=== PATIENT | female | born 1985 | race Caucasian/White ===

== ENCOUNTER 2020-10-03 07:30 | Inpatient (IN) | payer OTHER ==
[2020-10-02 16:44] LABS: Absolute Lymphocytes (CBC) 1.6 K/uL (0.7-4.9); Basophils % 0.2 % (0-1.3); Hematocrit 35.7 % (36.0-45.0); Lymphocytes % 15.8 % (15.3-44.8); MPV 8.8 fL (7.6-11.3)
[2020-10-02 16:46] LABS: Protime INR 0.92
[2020-10-02 17:56] LABS: Urine Appearance CLEAR; Urine Bilirubin NEGATIVE (NEG); Urine Blood NEGATIVE (NEG); Urine Color YELLOW; Urine Glucose TRACE (NEG); Urine Protein NEGATIVE (NEG); Urine Urobilinogen 0.2 mg/dL (0.2-1.0)
[2020-10-02 18:02] LABS: Urine Microscopic Reflex NO UMIC
[2020-10-03 03:07] LABS: RPR (Rapid Plasma Reagin) NON-REACT (NON-REACT)
[~2020-10-03 07:30] MED LIST: CEFAZOLIN/SWI 1gm 1 GM/10 ML SYR IVP SCH
[2020-10-04] MEDS ORDERED: Ringers Lactate 1,000 ML IV PRN (03:56)
[2020-10-04] MEDS ORDERED: Ringers Lactate 1,000 ML IV SCH (04:00)
[2020-10-04] MEDS ORDERED: NA CIT/CITRIC AC 30 ML ORAL UDC PO ONE (04:03)
[2020-10-04] MEDS ORDERED: FAMOTIDINE 20 MG/2 ML VIAL IV ONE (04:05)
[2020-10-04 04:22] VITALS: BMI 28.8
--- OUTSIDE RECORDS SUMMARY | 2020-10-04 04:34 | XMS REPORT | Continuity of Care Document ---
:1985 Author Organization [facility] t Address [address] [place] [address] Care Team Providers Name Role Phone Unavailable Unavailable Unavailable Problems This patient has no known problems. Allergies, Adverse Reactions, Alerts This patient has no known allergies or adverse reactions. Medications This patient has no known medications. Procedures This patient has no known procedures. Results This patient has no known results.
[2020-10-04] MEDS ORDERED: METOCLOPRAMIDE 10 MG/2mL INJ IV SCH (05:00)
[2020-10-04] MEDS ORDERED: CEFAZOLIN/SWI 1gm 1 GM/10 ML SYR ONE (06:41)
[2020-10-04] MEDS ORDERED: MORPHINE SULFATE/PF 1 MG/ML (10 ML AMP) ONE (06:58)
[2020-10-04] MEDS ORDERED: BUPIVACAINE 0.75% (PF) 2 ML SP ONE (06:59)
[2020-10-04] MEDS ORDERED: METHYLERGONOVINE 0.2MG/ML AMP IM ONE (07:00)
[2020-10-04] MEDS ORDERED: CARBOPROST TROME 250 MCG/ML IM ONE (07:00)
[2020-10-04] MEDS ORDERED: LIDOCAINE 1% MPF 5 ML VIAL ONE ×2 (07:05→07:16)
[2020-10-04] MEDS ORDERED: OXYTOCIN 10 UNIT/ML ML IV ONE (07:14)
[2020-10-04] MEDS ORDERED: EPHEDRINE SULF 50 MG/ML VIAL ONE (07:30)
[2020-10-04] MEDS ORDERED: NS 0.9% VIAL 10 ML ONE (07:30)
[2020-10-04] MEDS ORDERED: ONDANSETRON 4 MG/2 ML VIAL ONE (07:46)
[2020-10-04] MEDS ORDERED: BISACODYL 10 MG RECTAL SUPP RC PRN (08:04)
[2020-10-04] MEDS ORDERED: ONDANSETRON 4 MG/2 ML VIAL IV PRN (08:04)
[2020-10-04] MEDS ORDERED: ACETAMINOPHEN 500 MG TAB PO PRN ×2 (08:04)
[2020-10-04] MEDS ORDERED: Oxycodone HCl/Acetaminophen 1 TAB TAB PO PRN (08:04)
[2020-10-04] MEDS ORDERED: ONDANSETRON 4 MG (ODT) TAB PO PRN (08:04)
[2020-10-04] MEDS ORDERED: IBUPROFEN 600 MG TAB PO PRN (08:04)
--- NOTE | 2020-10-04 08:42 | OP ---
Surgeon: Angus Stone MD Database Engineer: Database Engineer surgeon: Dr. Braulio Burks MD. Anesthesiologist: Dr. Arroyo. Indication: A 35-year-old 7, para 1, AB 5, 39 weeks for repeat section. Infection, blood loss, anesthetic complications, injury to bladder, bowel, ureter, postoperative complications, clots in legs, pneumonia discussed. The patient knows fully well does not constitute all the possib le problems that could occur during or following surgery. Anesthesia: Spinal block. Procedure In Detail: After prepping and draping, time-out was performed and incision was created acr oss the previous incision site. The incision was carried to the fascia. The fascia was incised. Th e incision was carried transversely bilaterally. Anterior and posterior fascial plane were developed with both blunt and sharp dissection. Underlying rectus muscle was . Peritoneal defect wa s encountered and entered. Noted to be scarring on the left lower side of the uterus, fulguration wa s used to get better visualization. Low transverse uterine incision was created. A 6 pounds 4 ounce s female was delivered without difficulties. Apgars 9 and 9. Cord blood specimen obtained. Cervica l os was dilated. Uterus was inspected after placenta had been removed, noted to be intact. Estimat ed blood loss 700 cc during the entire procedure. Uterus was closed with a running lock stitch of 1 chromic followed by a small imbricating stitch of 1 chromic on the right side of the incision. Gutte rs were cleared of clot and blood. Uterus was replaced in the peritoneal cavity. Inspection of sutu re line showed no further bleeding. Rectus muscles were reapproximated using 3 interrupted sutures o f 0 Vicryl. 1 Vicryl was used to close the fascia running from either angle to the midline. Subcuta neous tissue was closed with 2-0 plain. Zack were used for the skin. The patient had been given 2 g of Ancef prior to the procedure. Tolerated all procedures well. Transferred back to her room in good condition. Final Diagnoses: Term intrauterine , repeat section, spinal block anesthesia. SHELLIE/ROOPA Voice ID: [id number] Report ID: [id number]
[2020-10-04] MEDS ORDERED: D5LR 1,000 ML with OXYTOCIN 20 UNIT IV SCH ×2 (09:00)
[2020-10-04] MEDS ORDERED: OXYTOCIN/LR 20 UNIT/1,000 ML BAG IV SCH (09:00)
[2020-10-04] MEDS: KETOROLAC 30 MG/ML INJ IM PRN ×2 (09:50→17:05)
[2020-10-04] MEDS ORDERED: Ringers Lactate 1,000 ML IV ONE (10:01)
[2020-10-04] MEDS: Oxycodone HCl/Acetaminophen 1 TAB TAB PO PRN ×2 (12:56→19:42)
[2020-10-04] MEDS ORDERED: CEFAZOLIN/SWI 1gm 1 GM/10 ML SYR IV SCH (15:00)
[2020-10-04] MEDS ORDERED: CEFAZOLIN/SWI 2gm 2 GM/20 ML SYR ONE (15:49)
[2020-10-04] MEDS ORDERED: CEFAZOLIN/SWI 2gm 2 GM/20 ML SYR IVP SCH (16:30)
[2020-10-05] MEDS: DIPHENHYDRAMINE 25 MG TAB/CAP PO PRN ×3 (00:40→17:00)
[2020-10-05] MEDS: KETOROLAC 30 MG/ML INJ IM PRN (00:41)
[2020-10-05] MEDS: Oxycodone HCl/Acetaminophen 1 TAB TAB PO PRN ×4 (04:34→20:00)
--- NOTE | 2020-10-05 07:46 | DS ---
Hospital Course: Gris Doss is a 35-year-old female, 7, para 1, 39 weeks for repeat libia an section. Underwent repeat section low transverse cervical, delivery of a 6 pounds 4 ounc es female, Apgars 9 and 9. Spinal block anesthesia, 700 cc or less blood loss. Mild scarring in the right lower portion of the uterus. ; afebrile, ambulating and voiding. Lochia is normal. H and H with minimal change. No post spinal block problems. She has had a Tdap and flu shots. Sh e will be dismissed tomorrow morning to report back to my office on Wednesday of next week to report any temperature elevation of 100 degrees or greater, severe pain, heavy bleeding, or any other type o f abnormalities. Dismissed with tramadol for analgesia. She knows this goes through the breast milk . Final Diagnoses: Term intrauterine , repeat section, spinal block anesthesia. SHELLIE/ROOPA Voice ID: [id number] Report ID: [id number]
[2020-10-05] MEDS ORDERED: MAGNESIUM HYDROXIDE 8% 30 ML PO PRN (08:04)
[2020-10-06] MEDS: Oxycodone HCl/Acetaminophen 1 TAB TAB PO PRN ×3 (00:05→08:15)
[2020-10-06 08:30] VITALS: BP 113/68; TEMP 98.5
--- NOTE | 2020-10-08 09:49 | PREOPHP ---
Date of Admission: 10/04/2020 History Of Present Illness: This is a 35-year-old 7, para 1, 5 miscarriages at 39 weeks, germaine orrow for repeat section. Infection, blood loss, anesthetic complications, injury to bladde r, bowel, ureter, postoperative complications, clots in legs, pneumonia discussed. The patient knows fully well this does not constitute all the possible problems that could occur during or following s urgery, knows with each surgery, risks and complications is higher. Family History: Maternal grandmother with kidney stones. Mother with gallbladder. Mother with cerv ical cancer. The patient has had a previous . Allergies: SHE HAS NO ALLERGIES. Social History: Does not smoke. Physical Examination: HEENT: Clear. Pupils equal, round, reactive to light and accommodation. Conjunctivae well perfused . No oral, lingual, or buccal lesions. Chest and Lungs: Clear. Heart: Without murmurs, thrills, heaves, or rubs. Breasts: Not examined on this visit. Abdomen: Term. Baby is probably in the 6.5 to 7 pounds range. Baby is vertex, is still high. Extremities: Clear without edema, cyanosis, or clubbing. Plan: We will proceed with section at approximately 38 weeks and 6 days tomorrow. SHELLIE/ROOPA Voice ID: [id number]
[2020-10-08 19:17] LABS: HBsAG Nonreactive (Nonreactive)
== END 2020-10-06 10:10 | disposition home or self-care (01) | DRG 788 ==
LOC: 2ND-WC 10-04 04:32 → MERGE 10-04 04:32
PROVIDERS: ADMIT Specialist; ATTEND Specialist
PROC: 10907ZC Drainage of Amniotic Fluid, Therapeutic from Products of Conception, Via Natural or Artificial Opening (ICD-10-PCS; 2020-10-04)
PROC: 10D00Z1 Extraction of Products of Conception, Low, Open Approach (ICD-10-PCS; principal; 2020-10-04 07:00)
DX: O34.211 Maternal care for low transverse scar from previous cesarean delivery (principal); Z3A.39 39 weeks gestation of pregnancy; Z37.0 Single live birth; Z20.828 Contact with and (suspected) exposure to other viral communicable diseases
CPT/HCPCS: 36415; 81003; 85014; 85025; 85610; 85730; 86592; 86850; 86900; 86901; 87340; 88307; J0690; J2210; J2405; J2590; J2765; J7120; J7121; U0003

== ENCOUNTER 2021-10-21 10:36 | Emergency (ER) | payer OTHER ==
--- OUTSIDE RECORDS SUMMARY | 2021-10-21 10:41 | XMS REPORT | Continuity of Care Document ---
:1985 Author Organization [facility] t Address [address] [place] [address] Care Team Providers Name Role Phone Unavailable Unavailable Unavailable Problems This patient has no known problems. Allergies, Adverse Reactions, Alerts This patient has no known allergies or adverse reactions. Medications This patient has no known medications. Procedures This patient has no known procedures. Results This patient has no known results.
[2021-10-21 11:11] LABS: Urine Blood Negative (Negative); Urine Glucose Negative (Negative); Urine Protein Negative (Negative); Urine Specific Gravity <=1.005 (1.005-1.030)
[2021-10-21 11:39] LABS: Urine Bacteria NONE SEEN /HPF (<20); Urine RBC <5 /HPF (NONE SEEN)
[2021-10-21 11:52] LABS: Absolute Lymphocytes (CBC) 1.5 K/uL (0.7-4.9); Basophils % 0.2 % (0-1.3); Hematocrit 32.5 % (36.0-45.0); Lymphocytes % 14.2 % (15.3-44.8); MPV 7.1 fL (7.6-11.3); RBC Red Blood Cell Count 3.56 M/uL (3.86-4.86)
[2021-10-21 12:50] LABS: ALT/SGPT 21 U/L (12-78); AST/SGOT 11 U/L (15-37); Albumin 2.7 g/dL (3.4-5.0); Alkaline Phosphatase 86 U/L (45-117); BUN Blood Urea Nitrogen 7 mg/dL (7-18); Bicarbonate 22 mmol/L (21-32); Bilirubin Direct < 0.1 mg/dL (0-0.2); Bilirubin Total 0.3 mg/dL (0.2-1.0); Glucose Level 94 mg/dL (74-106); Lipase 68 U/L (73-393); Potassium 3.9 mmol/L (3.5-5.1); Protein, Total 7.5 g/dL (6.4-8.2); Sodium Level 140 mmol/L (136-145)
[2021-10-21 12:58] LABS: SARS-COV-2 RT PCR NEGATIVE (NEGATIVE)
--- NOTE | 2021-10-21 14:22 | RAD REPORT ---
EXAM DESCRIPTION: Juliette Single View10/21/2021 2:15 pm CLINICAL HISTORY: Fever COMPARISON: 2011 FINDINGS: The lungs appear clear of acute infiltrate. The heart is normal size IMPRESSION: No acute abnormalities displayed
--- NOTE | 2021-10-21 14:34 | EDPHYS ---
Physician Documentation [facility] Name: Gris Hart Age: 36 yrs Sex: Female : 1985 Arrival Date: 10/21/2021 Time: 10:46 Bed 13 Private MD: Luis A Quevedo HPI: 10/21 11:02 This 36 yrs old Female presents to ER via Ambulatory with complaints of Fever, chills, jmm Urinary Problem. 11:02 Onset: The symptoms/episode began/occurred gradually, 1.5 week(s) ago. Modifying jmm factors: there are no obvious modifying factors. Associated signs and symptoms: Pertinent negatives: abdominal pain, diarrhea, headache, sinus congestion, sinus drainage, skin rash, shortness of breath, sore throat, vomiting. Is a 36-year-old female with no chronic medical conditions presents emerged department with complaints of fever which has been intermittent for approximately 1/2 weeks. Patient states she initially had urinary symptoms but this soon resolved. Patient now denies vomiting, diarrhea, sore throat, cough, dysuria, back pain, rash. Patient is concerned about intermittent episodes of high fever which cause fatigue.. 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 - Social history:: Smoking status: Patient denies any tobacco usage or history of. ROS: 11:02 Cardiovascular: Negative for chest pain, palpitations, and edema, Respiratory: Negative jmm for shortness of breath, cough, wheezing, and pleuritic chest pain, Abdomen/GI: Negative for abdominal pain, nausea, vomiting, diarrhea, and constipation, Back: Negative for injury and pain, Skin: Negative for injury, rash, and discoloration, Neuro: Negative for headache, weakness, numbness, tingling, and seizure. 11:02 Constitutional: Positive for fever. 11:02 All other systems are negative. Exam: 11:02 Constitutional: This is a well developed, well nourished patient who is awake, alert, jmm and in no acute distress. Head/Face: atraumatic. Eyes: EOMI, no conjunctival erythema appreciated ENT: Moist Mucus Membranes Neck: Trachea midline, Supple Chest/axilla: Normal chest wall appearance and motion. 11:02 Abdomen/GI: Non distended, soft Back: Normal ROM Skin: General appearance color normal MS/ Extremity: Moves all extremities, no obvious deformities appreciated, no edema noted to the lower extremities Neuro: Awake and alert, normal gait Psych: Behavior is normal, Mood is normal, Patient is cooperative and pleasant 11:02 Cardiovascular: Rate: normal, Rhythm: regular. 11:02 Respiratory: the patient does not display signs of respiratory distress, Respirations: normal, Breath sounds: are clear throughout. 11:02 Abdomen/GI: Inspection: abdomen appears normal, Bowel sounds: normal, Palpation: soft, nontender, in all quadrants. Vital Signs: 10:56 BP 95 / 62; Pulse 90; Resp 16; Temp 97.8; Pulse Ox 100% ; Weight 63.5 kg; Height 5 ft. iw 3 in. (160.02 cm); 11:00 BP 98 / 45; Pulse 80; Resp 16 S; Pulse Ox 100% on R/A; jg9 12:15 BP 94 / 57; Pulse 80; Resp 14; Pulse Ox 100% on R/A; jg9 13:00 BP 96 / 56; Pulse 63; Resp 14 S; Pulse Ox 100% on R/A; jg9 14:00 BP 100 / 64; Pulse 69; Resp 14 S; Pulse Ox 100% on R/A; jg9 10:56 Body Mass Index 24.80 (63.50 kg, 160.02 cm) iw MDM: 11:02 Patient medically screened. nikos 14:33 Data reviewed: vital signs, nurses notes. Counseling: I had a detailed discussion with jmjason the patient and/or guardian regarding: the historical points, exam findings, and any diagnostic results supporting the discharge/admit diagnosis, lab results, radiology results, the need for outpatient follow up, to return to the emergency department if symptoms worsen or persist or if there are any questions or concerns that arise at home. ED course: Patient is alert nontoxic in appearance in the ED. Physical exam is benign. Labs are unremarkable. Patient advised to follow-up with PCP at or otherwise given strict return precautions. Patient understood agrees plan of care.. 12/07 11:04 Order name: Urine Microscopic Only; Complete Time: 11:53 [facility] 10/21 11:04 Order name: Urine Culture [facility] 10/21 11:11 Order name: Urine Dipstick-Ancillary; Complete Time: 11:13 [facility] 10/21 11:24 Order name: Basic Metabolic Panel [facility] 10/21 11:24 Order name: CBC with Diff [facility] 10/21 11:24 Order name: Hepatic Function [facility] 10/21 11:24 Order name: Lipase [facility] 10/21 11:24 Order name: Procal; Complete Time: 13:17 [facility] 10/21 11:24 Order name: Lactate; Complete Time: 12:53 [facility] 10/21 11:24 Order name: Blood Culture Adult (2) [facility] 10/21 11:24 Order name: Park Screen Profile; Complete Time: 13:17 [facility] 10/21 11:24 Order name: Basic Metabolic Panel; Complete Time: 12:53 [facility] 10/21 11:04 Order name: Urine Dipstick-Ancillary (obtain specimen); Complete Time: 11:13 [facility] 10/21 11:24 Order name: IV Saline Lock; Complete Time: 11:45 [facility] 10/21 11:24 Order name: Labs collected and sent; Complete Time: 11:45 [facility] 10/21 11:24 Order name: CBC with Automated Diff; Complete Time: 12:08 [facility] 10/21 11:24 Order name: Liver (Hepatic) Function; Complete Time: 12:53 [facility] 10/21 11:25 Order name: Lipase; Complete Time: 12:53 [facility] 10/21 11:54 Order name: Labs - recollect needed: recollect all tubes; Complete Time: 12:33 bd 10/21 12:18 Order name: COVID-19/FLU A+B; Complete Time: 13:01 [facility] 10/21 13:18 Order name: Chest Single View XRAY; Complete Time: 14:24 [facility] Administered Medications: No medications were administered Disposition: 10/22 10:30 Co-signature as Attending Physician, Luis A Blount MD I agree with the assessment and nikos plan of care. Disposition Summary: 10/21/21 14:34 Discharge Ordered Location: Home [facility] Condition: Stable [facility] Diagnosis - Fever, unspecified [facility] Followup: [facility] - With: Private Physician - When: 2 - 3 days - Reason: Recheck today's complaints, Continuance of care, Re-evaluation by your physician Discharge Instructions: - Discharge Summary Sheet jmjason - Fever, Adult giuseppe Forms: - Medication Reconciliation Form giuseppe - Thank You Letter giuseppe - Antibiotic Education giuseppe - Prescription Opioid Use giuseppe Signatures: Dispatcher [employer] EDMS Dianelys Davison Corey, MD MD cha Mickail, Joel, PA PA jmm Williams, Irene, RN RN Kelly Barrios [email or web address] Corrections: (The following items were deleted from the chart) 10/21 12:18 11:25 SARS-COV-2 RT PCR+MOL.LAB.BRZ ordered. EDMS EDMS 12:19 11:25 Influenza Screen (A \T\ B)+BA.LAB.BRZ ordered. EDMS EDMS
--- NOTE | 2021-10-21 14:34 | ER ---
Nurse's Notes [facility] Name: Gris Hart Age: 36 yrs Sex: Female : 1985 Arrival Date: 10/21/2021 Time: 10:46 Bed 13 Private MD: Diagnosis: Fever, unspecified Presentation: 10/21 10:56 Chief complaint: Patient states: 14 days ago had UTI symptoms, had blood in urine, Dr. kary Stone checked labs, was told there was no infection, gave meds for nausea , still running fever intermittently. also has chills. Coronavirus screen: Client presents with at least one sign or symptom that may indicate coronavirus-19. Ebola Screen: Patient negative for fever greater than or equal to 101.5 degrees Fahrenheit, and additional compatible Ebola Virus Disease symptoms Patient denies exposure to infectious person. Patient denies travel to an Ebola-affected area in the 21 days before illness onset. Initial Sepsis Screen: Does the patient meet any 2 criteria? No. Patient's initial sepsis screen is negative. Does the patient have a suspected source of infection? No. Patient's initial sepsis screen is negative. Risk Assessment: Do you want to hurt yourself or someone else? Patient reports no desire to harm self or others. Onset of symptoms was October 09, 2021. 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 - Social history:: Smoking status: Patient denies any tobacco usage or history of. Screenin:00 Abuse screen: Denies threats or abuse. Denies injuries from another. Nutritional jg9 screening: No deficits noted. Tuberculosis screening: No symptoms or risk factors identified. Fall Risk None identified. Assessment: 11:00 General: Appears in no apparent distress. Behavior is calm, cooperative, appropriate jg9 for age. Pain: Denies pain. Neuro: No deficits noted. Cardiovascular: No deficits noted. Respiratory: No deficits noted. GI: No deficits noted. : Reports recently checked for UTI 14 days ago, no abnormal findings of infection per patient, PCP placed patient on anti-emetic, patient reports that she continues to have intermittent fevers every 2-3 hours-she's taking ibuprofen, Tylenol, and cold baths to tx. Vital Signs: 10:56 BP 95 / 62; Pulse 90; Resp 16; Temp 97.8; Pulse Ox 100% ; Weight 63.5 kg; Height 5 ft. iw 3 in. (160.02 cm); 11:00 BP 98 / 45; Pulse 80; Resp 16 S; Pulse Ox 100% on R/A; jg9 12:15 BP 94 / 57; Pulse 80; Resp 14; Pulse Ox 100% on R/A; jg9 13:00 BP 96 / 56; Pulse 63; Resp 14 S; Pulse Ox 100% on R/A; jg9 14:00 BP 100 / 64; Pulse 69; Resp 14 S; Pulse Ox 100% on R/A; jg9 10:56 Body Mass Index 24.80 (63.50 kg, 160.02 cm) ED Course: 10:46 Patient arrived in ED. am2 10:52 Juan White PA is PHCP. [facility] 10:52 Luis A Blount MD is Attending Physician. [facility] 10:59 Triage completed. iw 11:00 Arm band placed on. iw 11:00 Patient has correct armband on for positive identification. Bed in low position. Call jg9 light in reach. Side rails up X 1. 11:04 Alejandrina Thrasher is Primary Nurse. jg9 11:35 Inserted saline lock: 20 gauge in right upper arm, using aseptic technique. jg9 13:19 No apparent distress. Awaiting lab results, Awaiting disposition. Pt visited by mother, jg9 daughter. 14:15 Chest Single View XRAY In Process Unspecified. EDMS 14:41 No provider procedures requiring assistance completed. jg9 14:45 Basic Metabolic Panel Sent. jg9 14:45 CBC with Diff Sent. jg9 14:45 Hepatic Function Sent. jg9 14:45 Lipase Sent. jg9 Administered Medications: No medications were administered Outcome: 14:34 Discharge ordered by . jmm 14:49 Patient left the ED. jg9 Signatures: Dispatcher [employer] EDMS Juan White PA PA jmm Williams, Irene, RN Linda Velez Jennifer jg9
[2021-10-21 15:14] VITALS: TEMP 97.8; O2SAT 100
[2021-10-21 15:20] VITALS: BP 100/64
== END 2021-10-21 14:49 | disposition home or self-care (01) ==
LOC: ER 10:36
DX: R50.9 Fever, unspecified (principal); Z20.822 Contact with and (suspected) exposure to COVID-19
CPT/HCPCS: 87040 ×2; 87088; 85025; 87086; 80048; 36415; 86308; 80076; 83605; 87077; 87186; 83690; 84145; 0240U; 71045; 99284; 81003; 81015